=== PATIENT | female | born 1985 | race American Indian/Alaskan Native ===

== ENCOUNTER 2020-10-05 10:40 | Inpatient (IN) | payer MEDICAID ==
[2020-10-05] MEDS ORDERED: OXYTOCIN DRIP 30 UNITS/500 ML BAG IV SCH ×2 (16:00→17:00)
[2020-10-05] MEDS ORDERED: ONDANSETRON 4 MG/2 ML INJ IV PRN (16:16)
[2020-10-05] MEDS ORDERED: BUTORPHANOL 2 MG/1 ML INJ IV PRN (16:16)
[2020-10-05] MEDS ORDERED: LIDOCAINE (2%) 20 MG/1 ML VIAL 20 ML MDV INFILTRATI ONE (16:16)
[2020-10-05] MEDS ORDERED: ePHEDrine SULFATE 50 MG/1 ML INJ IV PRN ×2 (16:16→22:26)
[2020-10-05] MEDS ORDERED: TERBUTALINE 1 MG/1 ML INJ SUB-Q PRN (16:16)
[2020-10-05] MEDS ORDERED: MINERAL OIL 30 ML ORAL LIQD PO PRN (16:16)
[2020-10-05] MEDS ORDERED: ACETAMINOPHEN 325 MG TAB PO PRN (16:16)
[2020-10-05] MEDS: LACTATED RINGERS 1,000 ML IV SCH ×2 (16:28→22:42)
[2020-10-05] MEDS ORDERED: LACTATED RINGERS 1,000 ML IV SCH (17:30)
[2020-10-05 17:32] LABS: Hematocrit 30.9 % (30.3-42.9); Hemoglobin 10.4 gm/dl (10.1-14.3); Mean Corpuscular HGB Conc 34 % (30-34); Mean Corpuscular Volume 87 fl (79-97); Platelet Count 191 K/mm3 (140-440); Red Blood Count 3.54 M/mm3 (3.65-5.03); Red Cell Distribution Width 13.7 % (13.2-15.2)
--- NOTE | 2020-10-05 21:18 | History and Physical Report ---
History of Present Illness Date of examination: 10/05/20 Date of admission: 10/05/2020 Chief complaint: I'm here to be induced History of present illness: Pt is 35 year old who presents for induction of labor secondary to oligohydramnios. Pt has had an uncomplicated course. She transferred to [facility] at 28 weeks gestation from another provider. 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 She is GBS negative. Past History Past Medical History: no pertinent history Past Surgical History: no surgical history Family/Genetic History: none Social history: - Obstetrical History Expected Date of Delivery: 10/05/20 Actual Gestation: 40 Week(s) 0 Day(s) : 3 Para: 1 Number of Living Children: 1 Medications and Allergies Allergies Allergy/AdvReac Type Severity Reaction Status Date / Time No Known Allergies Allergy Verified 10/05/20 14:25 Home Medications Medication Instructions Recorded Confirmed Last Taken Type Vitamin 1 tab PO DAILY 10/05/20 10/05/20 10/05/20 History Valacyclovir HCl [Valacyclovir] 500 mg PO DAILY 10/05/20 10/05/20 10/05/20 History Active Meds: Active Medications Acetaminophen (Acetaminophen 325 Mg Tab) 650 mg PO Q4H PRN PRN Reason: Pain, Mild (1-3) Butorphanol Tartrate (Butorphanol 2 Mg/1 Ml Inj) 1 mg IV Q2H PRN PRN Reason: Pain, Moderate(4-6) LABOR PAIN Diphtheria/Tetanus/Acell Pertussis (Tetanus,Diph,Pertuss(Acell) Vaccine 0.5 Ml Syringe) 0.5 ml IM .ONCE ONE Stop: 10/06/20 06:01 Ephedrine Sulfate (Ephedrine Sulfate 50 Mg/1 Ml Inj) 10 mg IV Q2M PRN PRN Reason: Hypotension Oxytocin/Sodium Chloride (Pitocin/Ns 30 Unit/500ml) 30 units in 500 mls @ 0 mls/hr IV TITR HORACIO; Protocol Last Titration: 10/05/20 19:54 Dose: 14 ml/hr, 14 mls/hr Documented by: Lactated Ringer's (Lactated Ringers) 1,000 mls @ 125 mls/hr IV DIRECT HORACIO Last Admin: 10/05/20 16:28 Dose: 125 mls/hr Documented by: Oxytocin/Sodium Chloride (Pitocin/Ns 30 Unit/500ml) 30 units in 500 mls @ 2 mls/hr IV TITR HORACIO; Protocol Lactated Ringer's (Lactated Ringers) 1,000 mls @ 125 mls/hr IV DIRECT HORACIO Measles/Mumps/Rubella Vaccine Live (Measles, Mumps & Rubella 12,500 Unit/0.5 Ml Vaccine) 0.5 ml SUB-Q .ONCE ONE Stop: 10/06/20 11:59 Mineral Oil (Mineral Oil 30 Ml Oral Liqd) 30 ml PO QHS PRN PRN Reason: Constipation Ondansetron HCl (Ondansetron 4 Mg/2 Ml Inj) 4 mg IV Q8H PRN PRN Reason: Nausea And Vomiting Terbutaline Sulfate (Terbutaline 1 Mg/1 Ml Inj) 0.25 mg SUB-Q ONCE PRN PRN Reason: Hyperstimulation/Hypertonicity Review of Systems All systems: negative Genitourinary: other (vaginal pressure) Rectal Exam: deferred - Vital Signs Vital signs: Vital Signs Pulse Pulse Ox 78 99 10/05/20 10:52 10/05/20 10:52 Temp Pulse Resp BP Pulse Ox 99.2 F 64 18 107/67 100 10/05/20 19:30 10/05/20 21:10 10/05/20 19:30 10/05/20 19:30 10/05/20 21:10 - Physical Exam Breasts: Cardiovascular: Regular rate, Normal S1, Normal S2 Lungs: Positive: Clear to auscultation, Normal air movement Abdomen: Positive: normal appearance, soft, normal bowel sounds. Negative: distention, tenderness Genitourinary (Female): Positive: normal external genitalia, normal perenium Vulva: both: normal Vagina: Positive: normal moisture. Negative: discharge Uterus: Positive: normal size, normal contour Adnexa: both: normal Anus/Rectum: Positive: normal perianal skin, heme negative. Negative: rectal mass, hemorrhoids Extremities: Deep Tendon Reflex Grade: Normal +2 - Obstetrical Cervical Dilatation: 3 Cervical Effacement Percentage: 60 station: -2 Uterine Contraction Frequency (min): 5 Uterine Contraction Pattern: Irregular Uterine Tone Measurement Phase: Contraction Uterine Contraction Intensity: Moderate Results Result Diagrams: 10/05/20 12:10 Abnormal lab results 10/05/20 Range/Units 12:10 WBC 12.1 H (4.5-11.0) K/mm3 RBC 3.54 L (3.65-5.03) M/mm3 All other labs normal. Assessment and Plan IUP at 40 weeks here for induction of labor secondary to oligohydramnios. Admit to L&D. Begin pitocin. AROM when able. Anticipate .
[2020-10-05] MEDS ORDERED: NALOXONE 2 MG/2 ML INJ IV PRN (22:26)
--- NOTE | 2020-10-05 22:27 | Anesthesia Consultation ---
Anesthesia Consult and Med Hx Date of service: 10/05/20 - Airway Anesthetic Teeth Evaluation: Good ROM Head & Neck: Adequate Mental/Hyoid Distance: Adequate Mallampati Class: Class II Intubation Access Assessment: Good - Pulmonary Exam CTA: Yes - Cardiac Exam Cardiac Exam: RRR - Pre-Operative Health Status ASA Pre-Surgery Classification: ASA2 Proposed Anesthetic Plan: Epidural - Pulmonary Hx Smoking: Yes (stop 2014) Hx Asthma: No Hx Respiratory Symptoms: No SOB: No COPD: No Home Oxygen Therapy: No Hx Pneumonia: No Hx Sleep Apnea: No - Cardiovascular System Hx Hypertension: No Hx Coronary Artery Disease: No Hx Heart Attack/AMI: No Hx Angina: No Hx Percutaneous Transluminal Coronary Angioplasty (PTCA): No Hx Cardia Arrhythmia: No Hx Pacemaker: No Hx Internal Defibrillator: No Hx Valvular Heart Disease: No Hx Heart Murmur: No Hx Peripheral Vascular Disease: No - Central Nervous System Hx Neuromuscular Disorder: No Hx Seizures: No CVA: No Hx Back Pain: Yes Hx Psychiatric Problems: No - Gastrointestinal Hx Ulcer: No Hx Gastroesophageal Reflux Disease: Yes - Endocrine Hx Renal Disease: No Hx End Stage Renal Disease: No Hx Cirrhosis: No Hx Liver Disease: No Hx Insulin Dependent Diabetes: No Hx Non-Insulin Dependent Diabetes: No Hx Thyroid Disease: No Hx Hypothyroidism: No Hx Hyperthyroidism: No - Hematic Hx Anemia: No Hx Sickle Cell Disease: No - Other Systems Hx Alcohol Use: Yes (not while ) Hx Substance Use: Yes (marijiana prior) Hx Cancer: No Hx Obesity: No
--- NOTE | 2020-10-05 22:58 | Progress Note ---
Labor Epidural - Labor Epidural Start Time: 22:34 Stop Time: 22:42 Performed by:: MAGAN LACY Procedure: Patient is requesting a laboring epidural for laboring pain. Patient IDed, H&P reviewed, all questions and concerns were answered, and consent was signed. Timeout was performed at bedside. Patient in sitting position. Sterile prep and drape was performed. [3] ml of 1% lidocaine skin wheal at L[3]- L [4]. 18- gauge Tuohy epidural needle was advanced to loss of resistance with saline technique 7cm. Negative CSF negative blood. Epidural catheter advanced to [12] centimeters. [NEGATIVE] Aspiration [NEGATIVE] test dose. Sterile dressing applied. Patient tolerated procedure.
[2020-10-05] MEDS ORDERED: fentaNYL-BUPIV 2 MCG/ML-0.125% 200 MCG/100 ML BAG EPIDURAL SCH (23:00)
[2020-10-06] MEDS ORDERED: LIDOCAINE (2%) 20 MG/1 ML VIAL 20 ML MDV INFILTRATI ONE (01:48)
--- NOTE | 2020-10-06 02:37 | Procedure Note ---
OB Delivery Note - Delivery Date of Delivery: 10/06/20 Surgeon: LEON MUELLER Estimated blood loss: 300cc - Vaginal Delivery presentation: vertex Delivery position: OA Intrapartum events: none Delivery induction: oxytocin Delivery augmentation: rupture of membranes Delivery monitor: external FHT, external uterine Route of delivery: Delivery placenta: spontaneous Delivery cord: 3 umbilical vessels Episiotomy: none Delivery laceration: none Anesthesia: epidural Delivery comments: Viable male delivered at 2:17 AM over intact perineum without nuchal cord. Weight 7 pounds 3 ounces, Apgars 8 and 9. had spontaneous cry. His mouth and nose were suctioned upon delivery. He was then placed on maternal abdomen. Cord was clamped and cut when done pulsating. Placenta was delivered spontaneously and intact. No lacerations were noted. There was excellent hemostasis. The patient tolerated the procedure well - Infant A at 1 minute: 8 at 5 minutes: 9 Gender: Male (7 pounds 3 ounces)
[2020-10-06] MEDS ORDERED: PROMETHAZINE 25 MG RECT SUPP PR PRN (04:38)
[2020-10-06] MEDS ORDERED: PROMETHAZINE 25 MG TAB PO PRN (04:38)
[2020-10-06] MEDS ORDERED: HYDROcodone/ACETAMINOPHEN 5-325 MG TAB PO PRN (04:38)
[2020-10-06] MEDS ORDERED: LANOLIN/ZINC/DIMETHICONE (LANSINOH) 7 GM TP PRN (04:38)
[2020-10-06] MEDS ORDERED: diphenhydrAMINE 25 MG CAP PO PRN (04:38)
[2020-10-06] MEDS ORDERED: ONDANSETRON 4 MG/2 ML INJ IV PRN (04:38)
[2020-10-06] MEDS ORDERED: WITCH HAZEL/ GLYCERIN PAD TP PRN (04:38)
[2020-10-06] MEDS ORDERED: MAGNESIUM HYDROXIDE (MOM) ORAL LIQD UDC PO PRN (04:38)
[2020-10-06] MEDS ORDERED: TETANUS,DIPH,PERTUSS(ACELL) VACCINE 0.5 ML SYRINGE IM ONE (06:00)
[2020-10-06] MEDS: IBUPROFEN 600 MG TAB PO SCH ×4 (06:15→23:30)
--- NOTE | 2020-10-06 06:55 | Post Anesthesia Evaluation ---
- Post Anesthesia Evaluation Patient Participated: Yes Airway Patent: Yes Stable Respiratory Function: Yes Nausea/Vomiting: No Temp > 96.8F: Yes Pain Manageable: Yes Adequeate Hydration: Yes Anesthesia Complications: No Block Receding Appropriately: Yes Patient on Ventilator: No
[2020-10-06] MEDS: PRENATAL VIT27-FE FUMARATE-FOLIC ACID VIT TAB PO SCH (10:22)
[2020-10-06] MEDS: DOCUSATE SODIUM 100 MG CAP PO SCH ×2 (10:22→23:30)
[2020-10-06] MEDS ORDERED: MEASLES, MUMPS & RUBELLA 12,500 UNIT/0.5 ML VACCINE SUB-Q ONE (11:58)
[2020-10-06 14:04] LABS: Hemoglobin 9.8 gm/dl (10.1-14.3)
[2020-10-07] MEDS: IBUPROFEN 600 MG TAB PO SCH ×4 (05:11→22:18)
[2020-10-07] MEDS ORDERED: TETANUS,DIPH,PERTUSS(ACELL) VACCINE 0.5 ML SYRINGE IM ONE (06:00)
[2020-10-07] MEDS: DOCUSATE SODIUM 100 MG CAP PO SCH ×2 (10:49→22:17)
[2020-10-07] MEDS: PRENATAL VIT27-FE FUMARATE-FOLIC ACID VIT TAB PO SCH (10:49)
--- NOTE | 2020-10-07 10:51 | Progress Note ---
Assessment and Plan - Patient Problems (1) Vaginal delivery Current Visit: Yes Status: Acute Plan to address problem: patient doing well discharge home Subjective - Subjective Date of service: 10/07/20 Interval history: Patient without complaints. Pain well controlled Patient reports: appetite normal, voiding normally, pain well controlled : doing well Objective - Vital Signs Latest vital signs: Vital Signs Temp Pulse Resp BP BP Pulse Ox 10/07/20 09:00 98.3 F 61 18 108/70 99 10/07/20 01:31 98.2 F 73 20 105/58 100 10/06/20 16:15 98.4 F 70 18 94/51 99 Intake and Output 10/06/20 10/07/20 10/07/20 22:59 06:59 14:59 Intake Total 240 Output Total 450 Balance -450 240 Intake: Oral 240 Output: Urine 450 Void 450 Other: Total, Intake Amount 240 Total, Output Amount 450 # Voids Void 1 - Labs Labs: Abnormal lab results 10/06/20 Range/Units 13:39 Hgb 9.8 L (10.1-14.3) gm/dl Hct 29.0 L (30.3-42.9) %
--- NOTE | 2020-10-07 10:53 | Discharge Summary ---
Providers - Providers Date of Admission: 10/06/20 03:13 Date of discharge: 10/07/20 Attending physician: LEON MUELLER Primary care physician: LEON MUELLER Hospitalization Reason for admission: induction of labor Delivery: Discharge diagnosis: IUP at term delivered Hospital course: Patient admitted for IOL for oligohydramnios. Patient had a . uncomplicated Condition at discharge: Good Disposition: DC- TO HOME OR SELFCARE - Discharge Diagnoses (1) Vaginal delivery Status: Acute Plan - Discharge Medications Prescriptions: Ibuprofen [Motrin] 800 mg PO Q8HR PRN #40 tablet PRN Reason: Pain, Mild (1-3) HYDROcodone/APAP 5-325 [[place] 5/325] 1 each PO Q6HR PRN #15 tablet PRN Reason: Pain - Provider Discharge Summary Activity: no sex for 6 weeks, no heavy lifting 4 weeks, no strenuous exercise Diet: routine Instructions: routine Additional instructions: [] Smoking cessation referral if applicable(refer to patient education folder for contact #) [] Refer to [facility] Booklet Call your doctor immediately for: * Fever > 100.5 * Heavy vaginal bleeding ( >1 pad per hour) * Severe persistent headache * Shortness of breath * Reddened, hot, painful area to leg or breast * schedule visit in 4 weeks - Follow up plan
[2020-10-08] MEDS: IBUPROFEN 600 MG TAB PO SCH (05:36)
[2020-10-08 14:32] VITALS: BP 124/86
== END 2020-10-08 14:25 | disposition home or self-care (01) | DRG 775 ==
LOC: TRG 10:40 → APU 10:42 → TRG 12:00 → LD 12:52 → OB 10-06 05:09
PROVIDERS: ADMIT Obstetrics & Gynecology; ATTEND Obstetrics & Gynecology
PROC: 3E0R3BZ Introduction of Anesthetic Agent into Spinal Canal, Percutaneous Approach (ICD-10-PCS; 2020-10-05)
PROC: 00HU33Z Insertion of Infusion Device into Spinal Canal, Percutaneous Approach (ICD-10-PCS; 2020-10-05)
PROC: 10E0XZZ Delivery of Products of Conception, External Approach (ICD-10-PCS; principal; 2020-10-06)
PROC: 3E033VJ Introduction of Other Hormone into Peripheral Vein, Percutaneous Approach (ICD-10-PCS; 2020-10-06)
PROC: 3E0234Z Introduction of Serum, Toxoid and Vaccine into Muscle, Percutaneous Approach (ICD-10-PCS; 2020-10-06)
DX: O41.03X0 Oligohydramnios, third trimester, not applicable or unspecified (principal); Z37.0 Single live birth; Z3A.40 40 weeks gestation of pregnancy; O99.62 Diseases of the digestive system complicating childbirth; K21.9 Gastro-esophageal reflux disease without esophagitis; Z87.891 Personal history of nicotine dependence; Z20.822 Contact with and (suspected) exposure to COVID-19; Z23 Encounter for immunization
CPT/HCPCS: 36415; 59025; 84112; 85014; 85018; 85027; 86850; 86900; 86901; 90471; 90715; G0378; J2590; J7120; U0003